=== PATIENT | female | born 1990 | race Hispanic/Latino ===

== ENCOUNTER 2021-04-24 16:48 | Emergency (ER) | payer SELFPAY ==
[~2021-04-24] VITALS: Ht 152.4 cm; Wt 71.0 kg
[2021-04-24] MEDS ORDERED: AMOX/K CLAV875 M1 PO (17:13)
[2021-04-24 20:45] VITALS: BP 137/83
== END 2021-04-24 20:50 | disposition home or self-care (01) | DRG 605 ==
LOC: ED 16:48
DX: S51.852A Open bite of left forearm, initial encounter (principal); S80.872A Other superficial bite, left lower leg, initial encounter; W54.0XXA Bitten by dog, initial encounter; Y92.830 Public park as the place of occurrence of the external cause